=== PATIENT | female | born 1990 | race Caucasian/White ===

== ENCOUNTER 2024-09-04 15:15 | Emergency (ER) | payer BC, SELFPAY ==
[2024-09-04 15:31] VITALS: BP 118/88
[2024-09-04 15:52] LABS: % Basophils 0.3 % (0-2); % Eosinophils 0.8 % (0-6); % Immature Granulocytes 0.1 % (0-0.5); % Monocytes 4.1 % (1.7-9.3); % Neutrophils 72.7 % (42.2-75.2); Absolute Eosinophils 0.1 10^3/uL (0-0.7); Absolute Lymphocytes 1.6 10^3/uL (1.2-3.4); Absolute Monocytes 0.3 10^3/uL (0.1-0.6); Absolute Neutrophils 5.4 10^3/uL (1.4-6.5); Hematocrit 33.1 % (37.0-47.0); Hemoglobin 11.2 g/dL (12.0-16.0); Mean Corp Hgb Conc. 33.8 g/dL (33.0-37.0); Mean Corpuscular Hgb 27.9 pg (27.0-31.0); Mean Corpuscular Volume 82.5 fL (81.0-99.0); Mean Platelet Volume 10.4 fL (7.4-10.4); Nucleated Red Blood Cells % 0 %; Platelet Count 229 10^3/uL (130-400); Red Blood Cell Count 4.01 10^6/uL (4.20-5.40); Red Cell Dist. Width 13.1 % (11.5-14.5); White Blood Cell Count 7.4 10^3/uL (4.8-10.8)
[2024-09-04 15:56] LABS: HCG, Serum Qualitative Screen Negative
[2024-09-04 16:00] LABS: ALT (SGPT) 14 U/L (0-35); AST (SGOT) 19 U/L (14-36); Albumin 4.3 g/dl (3.5-5.0); Alkaline Phosphatase 52 U/L (38-126); Blood Urea Nitrogen 14 mg/dl (7-17); Calcium 9.2 mg/dl (8.4-10.2); Carbon Dioxide 24 mmol/L (22-30); Chloride 103 mmol/L (98-107); Glucose 113 mg/dl (70-99); Potassium 4.2 mmol/L (3.5-5.1); Sodium 135 mmol/L (135-145); Total Bilirubin 1.1 mg/dl (0.2-1.3); eGFR > 60.00
--- NOTE | 2024-09-04 17:58 | ED.GENMED ---
History of Present Illness
General
Chief Complaint: Vaginal Bleeding
Source: patient
Exam Limitations: none
Time Seen by Provider: 09/04/24 17:54
Nursing documentation reviewed up to this point in time: agreed with
History of Present Illness
History of Present Illness:
Patient is a 33-year-old female who presents to the ER for evaluation of heavy vaginal bleeding. Patient started with her period Monday night however this period has been very heavy. On Monday she had quarter sized blood clots and was going
through a nighttime pad every 2 hours. Today she has had persistent bleeding as well. She does have a history of anemia and is on iron supplements. She denies any lightheaded dizziness.
She is with no miscarriages abortions .her last delivery was 3 years ago she has not seen a chimney supervisor brick since then. She was followed by Dr. Davis.
She does report that her periods are normally very regular however her last menstrual period last month was very light.
She denies any abdominal pain.
Review of Systems
Review of Systems
Allergies reviewed?: Yes
All Other Systems: ROS reviewed and negative except as documented in HPI and ROS
Constitutional: Reports no symptoms; Denies fever, fatigue or chills
Respiratory: Reports no symptoms
Cardiac: Reports no symptoms
ABD/GI: Reports no symptoms
: Reports other (heavy vaginal bleeding )
Musculoskeletal: Reports no symptoms
Neurological: Reports no symptoms
Psychiatric: Reports no symptoms
Phy Exam
General Physical Exam
General Presentation: no apparent distress
General Skin: warm and dry
General Habitus: normal
General Mental: alert
General Hydration: appears well hydrated
Cardiovascular Exam
Cardiovascular Exam: regular rate/rhythm, no murmur and normal peripheral pulses
Pulmonary Exam
Pulmonary Exam: lungs clear and no respiratory distress
Gastrointestinal Exam
Gastrointestinal Exam: non tender and soft
Neurological Exam
Neurological Exam: alert and oriented x3
Musculoskeletal Exam
Musculoskeletal Exam: full ROM
Skin Exam
Skin Exam: normal color and warm/dry
Psychiatric Exam
Psychiatric Exam: normal mood/affect
Course
Orders/Labs/Results
Orders:
Orders
09/04/24 15:34
Test Result ONCE
09/04/24 15:38
Type+Screen Urgent
Complete Blood Count/With Diff Urgent
Comprehensive Metabolic Panel Urgent
HCG, Serum Qualitative Screen Urgent
Comment: Notify provider if positive test present
09/04/24 18:18
US Pelvis Only (non-obstetric) Urgent
Comment:
Reason For Exam: heavy vaginal bleeding
Abnormal Lab Results
09/04/24
15:38
RBC 4.01 L 10^6/uL
(4.20-5.40)
Hgb 11.2 L g/dL
(12.0-16.0)
Hct 33.1 L %
(37.0-47.0)
Glucose 113 H mg/dl
(70-99)
09/04/24 15:38
09/04/24 15:38
Vital Signs
Initial and Last Documented VS:
Initial Vital Signs
Temp Pulse Resp BP Pulse Ox
98.6 F 73 16 118/88 98
09/04/24 15:31 09/04/24 15:31 09/04/24 15:31 09/04/24 15:31 09/04/24 15:31
Last Documented Vital Signs
Temp Pulse Resp BP Pulse Ox
98.6 F 71 18 128/74 99
09/04/24 15:31 09/04/24 18:43 09/04/24 18:43 09/04/24 18:43 09/04/24 18:43
MDM/Problems Addressed
Differential Diagnosis Includes:
Not limited to heavy vaginal bleeding, anemia
MDM/Problems Addressed:
Patient is a 33-year-old female who presents for heavy menstrual period .she reports when it started several days ago bleeding is heavier than normal she does have a history of anemia. HCG neg.
She is nontoxic on exam and no acute distress hemoglobin is 11.2. Heart rates in the 70s and she is very well-appearing ultrasound was done which is negative for any focal abnormality of the uterus or endometrium. Both ovaries appear within
normal limits.
Will DC with outpatient follow-up with gynecology.
*Radiology
Radiology exam reviewed: radiology read reviewed
*Pulse Oximetry
Patient hypoxic: no
*Critical Care Note
Total Time (30-74mins, 75-104mins- exclusive of procedures): Not Applicable
ED Attending Note
-
Portions of this chart may have been created with voice recognition software.� Occasional wrong word or��sound alike� substitutions may have occurred due to the inherent limitations of voice recognition software.
Discharge Plan
Departure
Patient Disposition: Home (Routine Discharge)
Date of Disposition: 09/04/24
Time of Disposition: 20:01
Patient with high blood pressure during this ER visit?: No
Condition: Fair
Covid-19: Not Applicable
Discharge Problem:
Vaginal bleeding
Instructions: Heavy Periods (DC), BLOOD PRESSURE
Prescriptions:
No Action
PNV cmb#95-ferrous fumarate-FA [] 1 EACH tablet
1 ea PO DAILY
acetaminophen 325 MG tablet
650 mg PO Q4HPRN PRN (Reason: mild pain) 0RF
ibuprofen 600 MG tablet
600 mg PO Q4HPRN PRN (Reason: cramps) 0RF
Referrals:
Evi Luke DO [Active] -
Nikita Duvall MD [Family Provider] -
Activity Restrictions/Additional Instructions:
As discussed your ultrasound was normal and your hemoglobin is stable at 11.2. Please follow-up with SHIPPING AND RECEIVING SUPERVISOR. Call tomorrow to make an appointment soon as possible return if any worsening of symptoms.
Interventions
Interventions:
*Risk Screen - Suicide Last Done: 09/04/24 15:31
*General Assessment Last Done: 09/04/24 15:31
*Neglect/Abuse Screening Last Done: 09/04/24 20:04
ED- Fall Risk Assessment Last Done: 09/04/24 20:04
*ED COVID-19 Vaccine History Last Done: 09/04/24 15:31
*Nursing Disposition Last Done: 09/04/24 20:04
ED-Female Genitourinary Assessment Last Done: 09/04/24 20:04
Discharge Date and Time
Discharge Date/Time: 09/04/24 20:12
Print Language: BERMUDIAN
[2024-09-04 18:43] VITALS: BP 128/74
== END 2024-09-04 20:12 | disposition home or self-care (01) ==
LOC: EMR 15:15
PROVIDERS: EMERGENCY PHYSICIAN Emergency Medicine; FAMILY PHYSICIAN Family Medicine
DX: N92.0 Excessive and frequent menstruation with regular cycle (principal)
CPT/HCPCS: 99284; 76856; 80053; 84703; 85025; 86850; 86900; 86901